=== PATIENT | female | born 2000 | race Asian ===

== ENCOUNTER → 2019-03-11 00:12 | Emergency (ER) | payer SELFPAY ==
[~2019-03-11 00:12] MED LIST: Mouth Piece, Nicotine* 1 EACH CARTRIDGE INH PRN; Nicotine Inhaler* 10 MG AMP INH PRN
[2019-03-11 00:36] VITALS: BP 135/86
--- NOTE | 2019-03-11 01:04 | ED ---
Medical Screening - HPI Summary HPI Summary: Patient brought from [place] to ED by EMS with 941. Patient states she was having a panic attack, and resonated advisor was concerned. Per EMS, co founder and president states patient did say she had some thoughts of hurting herself. Patient states she has intermittent thoughts of hurting herself times years, but has never acted on them. History of panic attacks. Currently trying Lexapro to manage panic attacks, but states it is not working. Sees a psychologist or [facility] once a week, a psychiatrist once a month. States she has a plan to discuss changing from Lexapro to another medication next week with her when she has her appointment with psychiatrist. Patient is currently alert and oriented, calm and cooperative, denies SI, HI, active symptoms of anxiety. Patient states these episodes come and go and that she is fine. Denies ever having prior SI attempt, or ever having a plan. Denies EtOH, recreational drug use. - History of Current Complaint Chief Complaint: EDMentalHealth Stated Complaint: 941 PER EMS Time Seen by Provider: 03/11/19 00:45 Onset/Duration: Started Hours Ago, Resolved Severity: mild PMH/Surg Hx/FS Hx/Imm Hx Endocrine/Hematology History: Denies: Hx Anticoagulant Therapy Cardiovascular History: Denies: Hx Pacemaker/ICD History: Denies: Hx Dialysis Sensory History: Denies: Hx Eye Prosthesis Opthamlomology History: Denies: Hx Legally Blind EENT History: Denies: Hx Deafness Neurological History: Denies: Hx Dementia Psychiatric History: Denies: Hx Autism Infectious Disease History: No Infectious Disease History: Denies: Traveled Outside the [place] in Last 30 Days - Social History Occupation: Student Alcohol Use: None Substance Use Type: Reports: None Smoking Status (MU): Never Smoked Tobacco Review of Systems Constitutional: Negative Eyes: Negative ENT: Negative Cardiovascular: Negative Respiratory: Negative Gastrointestinal: Negative Genitourinary: Negative Musculoskeletal: Negative Skin: Negative Neurological: Negative Psychological: Normal All Other Systems Reviewed And Are Negative: Yes Physical Exam - Summary Physical Exam Summary: Patient calm and alert, cooperative and coherent. Has existing therapy, familiarity with symptoms, plan for future, and plan in place to follow up with psychiatrist regarding management of existing symptoms. Physical exam unremarkable. Triage Information Reviewed: Yes Vital Signs On Initial Exam: Initial Vitals Temp Pulse Resp BP Pulse Ox 98.4 F 95 18 135/86 98 03/11/19 00:20 03/11/19 00:20 03/11/19 00:20 03/11/19 00:20 03/11/19 00:20 Vital Signs Reviewed: Yes Appearance: Positive: Well-Appearing Skin: Positive: Warm Head/Face: Positive: Normal Head/Face Inspection Eyes: Positive: Normal ENT: Positive: Normal ENT inspection Neck: Positive: Supple Respiratory/Lung Sounds: Positive: Clear to Auscultation Cardiovascular: Positive: Normal Abdomen Description: Positive: Nontender Musculoskeletal: Positive: Normal Neurological: Positive: Normal Psychiatric: Positive: Normal AVPU Assessment: Alert - [place] Coma Scale Best Eye Response: 4 - Spontaneous Best Motor Response: 6 - Obeys Commands Best Verbal Response: 5 - Oriented Coma Scale Total: 15 Diagnostics - Vital Signs Vital Signs Temp Pulse Resp BP Pulse Ox 03/11/19 00:20 98.4 F 95 18 135/86 98 - Laboratory Lab Statement: Any lab studies that have been ordered have been reviewed, and results considered in the medical decision making process. Course/Dx - Course Course Of Treatment: Patient brought from [place] to ED by EMS with 941. Patient states she was having a panic attack, and resonated advisor was concerned. Per EMS, co founder and president states patient did say she had some thoughts of hurting herself. Patient states she has intermittent thoughts of hurting herself times years, but has never acted on them. History of panic attacks. Currently trying Lexapro to manage panic attacks, but states it is not working. Sees a psychologist or [place] once a week, a psychiatrist once a month. States she has a plan to discuss changing from Lexapro to another medication next week with her when she has her appointment with psychiatrist. Patient is currently alert and oriented, calm and cooperative, denies SI, HI, active symptoms of anxiety. Patient states these episodes come and go and that she is fine. Denies ever having prior SI attempt, or ever having a plan. Denies EtOH, recreational drug use. Physical exam: Patient calm and alert, cooperative and coherent. Has existing therapy, familiarity with symptoms, plan for future, and plan in place to follow up with psychiatrist regarding management of existing symptoms. Physical exam unremarkable. Vital signs within normal limits. Patient appears clinically competent to make decision. Her calm, cooperative and alert. Active and energetic and presentation. Presenting with no concerning mental health symptoms. Has plan for future, and plan to manage existing symptoms. Has existing ongoing therapy in place with close follow-up as she has an appointment with psychologist once a week, and has an appointment with her psychiatrist next week to change Lexapro medication. Patient deemed safe for discharge. - Diagnoses Provider Diagnoses: Panic attack Discharge - Sign-Out/Discharge Documenting (check all that apply): Patient Departure Patient Received Moderate/Deep Sedation with Procedure: No - Discharge Plan Condition: Stable Disposition: HOME Patient Education Materials: Anxiety (ED), Panic Attack (ED) Referrals: No Primary Care Phys,NOPCP [Primary Care Provider] - Additional Instructions: Follow up with your psychiatrist and your psychologist for further evaluation of panic attacks. Return to the ED for any new or worsening symptoms. - Billing Disposition and Condition Condition: STABLE Disposition: Home
[2019-03-11 01:17] LABS: Barbiturates Urine Screen None Detected (None Detect); Benzodiazepine Urine Screen None Detected (None Detect); Urine Cannabinoids Screen None Detected (None Detect)
[2019-03-11 01:51] LABS: Urine Appearance Clear; Urine Bacteria Absent (Absent); Urine Bilirubin Negative (Negative); Urine Blood Negative (Negative); Urine Color Yellow; Urine Glucose Negative (Negative); Urine Ketones Negative (Negative); Urine Nitrite Negative (Negative); Urine Protein Negative (Negative); Urine Red Blood Cell Absent (Absent); Urine Specific Gravity 1.024 (1.010-1.030); Urine Squamous Epithelial Cell Present (Absent); Urine Urobilinogen Negative (Negative); Urine White Blood Cell Trace(0-5/hpf) (Absent)
== END | disposition home or self-care (01) ==
LOC: ED 00:12
DX: F41.0 Panic disorder [episodic paroxysmal anxiety] (principal)
CPT/HCPCS: 36415; 80307; 81003; 81015; 87086; 99283